=== PATIENT | female | born 1970 | race Native Hawaiian/Other Pacific Islander ===

== ENCOUNTER 2021-08-12 21:03 | Emergency (ER) | payer BC ==
[~2021-08-12] VITALS: Ht 157.5 cm; Wt 77.1 kg
[2021-08-12 22:16] LABS: PLATELET COUNT 297 K/uL (152-353)
[2021-08-12 22:29] LABS: POTASSIUM 4.3 mmol/L (3.6-5.2)
[2021-08-12 22:55] VITALS: BP 132/77; TEMP 98.8
== END 2021-08-12 23:00 | disposition home or self-care (01) ==
LOC: ED 21:03
PROVIDERS: Emergency Medicine
DX: M25.572 Pain in left ankle and joints of left foot (principal); W10.8XXA Fall (on) (from) other stairs and steps, initial encounter; Y92.098 Other place in other non-institutional residence as the place of occurrence of the external cause
CPT/HCPCS: 36415; 80048; 85027; 85610; 85730; 99283